=== PATIENT | male | born 1960 | race Caucasian/White ===

== ENCOUNTER 2016-09-12 10:35 | Emergency (ER) | payer BC ==
--- NOTE | 2016-09-12 11:23 | EDM.PDOC ---
ED HPI GENERAL MEDICAL PROBLEM - General Chief Complaint: General Stated Complaint: cough, cold s/s Time Seen by Provider: 09/12/16 11:01 Source of Information: Reports: Patient History Limitations: Reports: No limitations - History of Present Illness INITIAL COMMENTS - FREE TEXT/NARRATIVE: Persistent cough and congestion No fever Cough occasionally productive Onset: gradual Duration: Week(s): Location: Reports: chest Worsens with: Reports: Breathing Associated Symptoms: Reports: no other symptoms - Related Data Allergies Allergy/AdvReac Type Severity Reaction Status Date / Time No Known Allergies Allergy Verified 09/12/16 10:42 Home Meds: Home Meds Ascorbic Acid [Vitamin C] 1,000 mg PO DAILY 09/12/16 [History] Azithromycin [Zithromax] 250 mg PO DAILY #7 tablet 09/12/16 [Rx] Cholecalciferol (Vitamin D3) [Vitamin D3] 5,000 mg PO DAILY 09/12/16 [History] Fenofibrate,Micronized [Fenofibrate] 134 mg PO BEDTIME 09/12/16 [History] LORazepam 0.5 mg PO DAILY PRN 09/12/16 [History] Lisinopril 5 mg PO DAILY 09/12/16 [History] Metoprolol Tartrate 25 mg PO BID 09/12/16 [History] Multivitamin [Daily Multiple Vitamin] 1 tab PO DAILY 09/12/16 [History] ED ROS GENERAL - Review of Systems Review Of Systems: See Below Respiratory: Reports: Shortness of Breath, Cough ED EXAM, GENERAL - Physical Exam Exam: See Below Throat/Mouth: Normal oropharynx Neck: supple Respiratory/Chest: lungs clear Cardiovascular: regular rate, rhythm Departure - Departure Time of Disposition: 11:30 Disposition: Home, Self-Care 01 Clinical Impression: Bronchitis Prescriptions: Azithromycin [Zithromax] 250 mg PO DAILY #7 tablet Forms: ED Department Discharge
[2016-09-12 12:25] VITALS: BP 139/80
== END 2016-09-12 11:35 | disposition home or self-care (01) ==
LOC: LL.ED 10:35
DX: J40 Bronchitis, not specified as acute or chronic (principal); Z79.899 Other long term (current) drug therapy
CPT/HCPCS: 99283

== ENCOUNTER 2019-02-09 08:50 | Day surgery (SDC) | payer BC ==
[~2019-02-09 08:50] MED LIST: Lactated Ringers 1,000 ML IV SCH; Propofol 200 MG/20 ML SDV ONE; Sodium Chloride 0.9% 10 ML Syringe FLUSH PRN
[2019-02-09] MEDS ORDERED: Ondansetron 4 MG/2 ML SDV ONE (09:46)
[2019-02-09] MEDS ORDERED: Propofol 200 MG/20 ML SDV ONE ×2 (09:46→10:17)
--- NOTE | 2019-02-09 10:12 | PCM.HPR ---
H & P Addendum review - H & P Addendum Review Date of Original H & P: 01/13/19 Date Reviewed: 02/09/19 Time Reviewed: 09:15 Patient was Examined: No Changes
--- NOTE | 2019-02-09 10:12 | PCM.OPNOTE ---
- General Post-Op/Procedure Note Date of Surgery/Procedure: 02/09/19 Operative Procedure(s): Colonoscopy Findings: Sig Tics Pre Op Diagnosis: Pos Cologuard Post-Op Diagnosis: Same Anesthesia Technique: MAC Primary Surgeon: Jacek Gil Anesthesia Provider: Avani Montes Complications: None Condition: Good
[2019-02-09 12:52] VITALS: BP 127/81
--- NOTE | 2019-02-10 10:23 | OR ---
Date of Procedure: 02/09/2019 PREOPERATIVE DIAGNOSIS: Positive Cologuard. POSTOPERATIVE DIAGNOSIS: Sigmoid diverticulosis. PROCEDURE: Colonoscopy. ANESTHESIA: IV sedation. DESCRIPTION OF PROCEDURE: The patient was brought to the procedure room where he was placed on his left side and IV sedation administered. Digital rectal exam was performed which was normal. Colonoscope was inserted and advanced to the level of the cecum with some difficulty getting through the ascending colon, requiring pressure on the abdomen. Cecal position was reached and confirmed by identifying the appendiceal lumen and the ileocecal valve. Prep was good with some areas of thick liquid stool remaining that was mostly irrigated and suctioned. Upon withdrawing the scope, the ascending, transverse, and descending colon were normal in appearance. Sigmoid colon had multiple diverticula present. Rectum was normal and retroflexion was normal. Air was removed and the scope withdrawn. The patient tolerated the procedure well and returned to Recovery in stable condition. Recommend routine colon screening again in 10 years. SANJANA REYNOSO MD /[id number] CC: Eladia Malik PA-C
== END 2019-02-09 10:50 | disposition home or self-care (01) ==
LOC: LL.SDS 08:50
PROVIDERS: ATTEND Surgery
DX: R19.5 Other fecal abnormalities (principal); K57.30 Diverticulosis of large intestine without perforation or abscess without bleeding; I10 Essential (primary) hypertension; E78.5 Hyperlipidemia, unspecified; E55.9 Vitamin D deficiency, unspecified
CPT/HCPCS: J2405; J2704; J7120

== ENCOUNTER 2021-11-19 05:53 | Emergency (ER) | payer BC ==
[2021-11-19] MEDS ORDERED: Lidocaine 4% 1 each Patch TOP PRN (06:29)
[2021-11-19] MEDS ORDERED: Acetaminophen 325 MG Tab PO PRN (06:31)
[2021-11-19] MEDS ORDERED: Omeprazole 20 MG Cap.CR PO SCH (08:00)
[2021-11-19 09:38] VITALS: BP 151/84; PULSE 88
== END 2021-11-19 07:15 | disposition home or self-care (01) ==
LOC: LL.ED 05:53
DX: M54.6 Pain in thoracic spine (principal); K21.9 Gastro-esophageal reflux disease without esophagitis; E78.00 Pure hypercholesterolemia, unspecified; I10 Essential (primary) hypertension; Z79.82 Long term (current) use of aspirin; Z79.899 Other long term (current) drug therapy
CPT/HCPCS: 93010; 99283-25; 99284; A9270-GY